=== PATIENT | male | born 1950 | race Caucasian/White ===

== ENCOUNTER 2016-12-31 05:28 | Inpatient (IN) | END 2017-01-01 11:45 | disposition home or self-care (01) | DRG 483 | DX: M19.011 Primary osteoarthritis, right shoulder (principal); E66.01 Morbid (severe) obesity due to excess calories; S46.211A Strain of muscle, fascia and tendon of other parts of biceps, right arm, initial encounter; X58.XXXA Exposure to other specified factors, initial encounter; K21.9 Gastro-esophageal reflux disease without esophagitis; Z68.38 Body mass index [BMI] 38.0-38.9, adult ==